=== PATIENT | male | born 1955 | race Caucasian/White ===

== ENCOUNTER 2024-05-28 09:35 | Outpatient (AMB) | payer OTHER, SELFPAY ==
--- NOTE | 2024-05-28 10:24 | ORTHONT_ITS ---
Vital signs 05/28/24 10:25 Height 1.7 m Height Method Stated Weight 91.172 kg Weight Measurement Method Standing Scale BMI 31.4 BP 137/86 H Blood Pressure Source Automatic Cuff Blood Pressure Location Left Upper Arm Position Sitting Respiration 18 Pulse 98 Pulse Source Monitor Temp 98.0 F Temp Source Temporal Artery Scan Pulse Oximetry (%) 96 Oxygen Delivery Method Room Air Med/Allergies Allergies & Medications Allergies No Known Allergies Allergy (Verified 05/28/24 10:25) Medication Reconciliation Unobtainable 05/28/24 [History Confirmed 05/28/24] Exam Exam Breathing is nonlabored. Patient has a normal mood and affect. Bilateral extremities were evaluated and demonstrates sensation intact to light touch. Palpable pedal pulses are present. No significant edema is present. Bilateral hips were examined. The patient has no pain with log roll of the hips. Internal rotation to 30 degrees and external rotation to 30 degrees is painless. Negative FADIR. Left knee was examined today. The left knee is in reasonable alignment. Range of motion from 0-120 degrees. Knee is stable to varus and valgus as well as AP tra nslation with <5mm. Patient has a negative McMurrays. There is no pain with patellofemoral compression and no crepitus noted. The knee is nontender to palpation. The right knee was also examined. The right knee is in varus alignment. Range of motion from 0-115 degrees. Knee is stable to varus and valgus as well as AP translation with <5mm. Patient has a negative McMurrays. There is no pain with patellofemoral compression and no crepitus noted. The knee is tender to palpation medially. Assessment and Plan Problem List (1) Arthritis of knee, right: Status: Acute Plan: Patient is a 68-year-old male with severe right knee arthritis is tried multiple injections in the past. He reports they still work. He is interested in new injections today. He is not interested in surgery at this time. I would like to get new x-rays as it has been over 2 years. We will see him back in 1 month. Advanced Care Planning Discussion Advance care planning discussed with:: patient Office Procedures GNS Level of Care Nursing/Assessment Patient Status: Initial/New Patient Nursing Assessment/Reassesment: Medication Reconciliation, Update PMH in EMR and Vital Signs Coordination of Care: Complex Care and Chronic Disease 1-5, Education Complex Pt/Fam, Consent,records obtained, informed consent, 1 Ins Authorization, Lab and Imaging orders, Results/Orders obtained and Staff clarify orders Special Needs: Language special needs New Patient Charge New Patient Point Assignment: 1124 New Patient Point Charge: BOMB SQUAD OFFICER Level 4 ([id number]) MA Intake Visit Data Collection New Patient or Established: New Patient (never been to [facility]) Reason for Visit:: RIGHT KNEE OSTEOARTHRITIS Seen by Clinical Staff ONLY (RN/MA): No Photostatic Copy Maker Required: Yes PCP or OBGYN visit in last 3 months: Yes Hx Now: No Do You Feel Safe at Home: Yes Authorities Contacted: N/A Questionairres Past Medical History Past Medical History Have you ever been diagnosed with any of the following: Cardiology Problems Hypercholesterolemia: Yes Hypertension: Yes Subjective Visit Visit for: new patient and knee (RIGHT) Immunization / Flu Flu Vaccine in the Last 12 Months: No Flu Vaccine Exclusion Criteria: No Exclusion Criteria History of Present Illness Chief complaint: right knee pain Mane is a pleasant 68-year-old male with right knee pain. The pain has been ongoing for several years. He is tried over 5 injections anti-inflammatories. He is not interested in surgery at this time. He would like to continue with conservative treatment. His last x-rays were over 2 years old Pain Pain level (0-10): 6 Pain duration: WITH MOVEMENT Pain location: anterior Pain quality: sharp, dull and aching Pain timing: increases with activity and stairs Associated signs & symptoms: weakness Ambulatory data Ambulatory device: none Treatments Number of previous injections: 5 Improvement with previous injections: No Number of Physical Therapy sessions: 12 Improvement with PT: No Improvement with NSAIDS: no Review of Systems Review of Systems: All systems negative unless otherwise noted in HPI.
[2024-05-28 10:25] VITALS: BP 137/86; PULSE 98; RESP 18; TEMP 36.7; O2SAT 96; BMI 31.4
== END 2024-05-28 10:35 | disposition home or self-care (01) ==
LOC: HODSRG 09:35
PROVIDERS: Supervising Provider Orthopaedic Surgery Adult Reconstructive Orthopaedic Surgery; Visit Provider Orthopaedic Surgery Adult Reconstructive Orthopaedic Surgery
DX: M17.11 Unilateral primary osteoarthritis, right knee (principal); I10 Essential (primary) hypertension; E78.00 Pure hypercholesterolemia, unspecified
CPT/HCPCS: 99204; G0463

== ENCOUNTER → 2024-05-28 | Outpatient (CLI) | payer OTHER, MEDICAID, SELFPAY ==
--- NOTE | 2024-05-28 | XR_ITS ---
Examination: Right knee 4 views TECHNIQUE: Standing AP oblique lateral axial right knee PA flexion 4 views Exam date and time: May 20, 2024 12:35 PM INDICATIONS: Patient fell 2020 with injury to the knee, worsening knee pain. FINDINGS: Significant osteopenia Severe narrowing medial joint space, [id number] Significant osteoarthritis patellofemoral lateral joint spaces No fracture IMPRESSION: Severe narrowing medial joint space, [id number]
== END | disposition home or self-care (01) ==
PROVIDERS: Referring Provider Orthopaedic Surgery Adult Reconstructive Orthopaedic Surgery; Visit Provider Orthopaedic Surgery Adult Reconstructive Orthopaedic Surgery
DX: M25.861 Other specified joint disorders, right knee (principal)
CPT/HCPCS: 73564

== ENCOUNTER 2024-06-13 08:55 | Outpatient (AMB) | payer OTHER, MEDICAID, SELFPAY ==
[2024-06-13 09:31] VITALS: BP 143/91; PULSE 100; RESP 19; TEMP 36.8; O2SAT 98; BMI 31.4
--- NOTE | 2024-06-13 09:31 | PD.ORTHCLVIS ---
Vital signs 06/13/24 09:31 Height 1.7 m Height Method Stated Weight 90.86 kg Weight Measurement Method Standing Scale BMI 31.4 BP 143/91 H Blood Pressure Source Automatic Cuff Blood Pressure Location Right Upper Arm Position Sitting Respiration 19 Pulse 100 Pulse Source Monitor Temp 98.3 F Temp Source Temporal Artery Scan Pulse Oximetry (%) 98 Oxygen Delivery Method Room Air Med/Allergies Allergies & Medications Allergies No Known Allergies Allergy (Verified 06/13/24 09:32) Medication Reconciliation amlodipine 5 mg-atorvastatin 20 mg tablet 1 tab PO QDAY 06/13/24 [History Confirmed 06/13/24] atorvastatin 20 mg tablet 20 mg PO QDAY 06/13/24 [History Confirmed 06/13/24] metformin 500 mg tablet 500 mg PO QDAY 06/13/24 [History Confirmed 06/13/24] Exam Exam Breathing is nonlabored. Patient has a normal mood and affect. Bilateral extremities were evaluated and demonstrates sensation intact to light touch. Palpable pedal pulses are present. No significant edema is present. Bilateral hips were examined. The patient has no pain with log roll of the hips. Internal rotation to 30 degrees and external rotation to 30 degrees is painless. Negative FADIR. Left knee was examined today. The left knee is in reasonable alignment. Range of motion from 0-120 degrees. Knee is stable to varus and valgus as well as AP translation with <5mm. Patient has a negative McMurrays. There is no pain with patellofemoral compression and no crepitus noted. The knee is nontender to palpation. The right knee was also examined. The right knee is in varus alignment. Range of motion from 0-115 degrees. Knee is stable to varus and valgus as well as AP translation with <5mm. Patient has a negative McMurrays. There is no pain with patellofemoral compression and no crepitus noted. The knee is tender to palpation medially. X-rays demonstrate complete joint space obliteration medially. He has significant varus deformity Assessment and Plan Problem List (1) Arthritis of knee, right: Status: Acute Plan: Patient is a 68-year-old male with severe right knee arthritis is tried multiple injections in the past. He reports they still work. He is interested in new injections today. Recommend knee cortisone injection as patient would like to proceed with conservative treatment at this time. The risks and benefits of the procedure were reviewed with the patient and patient gave verbal consent to continue with the procedure. Procedure: performed by Dr. Tracy Using sterile technique the Right knee was thoroughly prepped with alcohol, and approximately 1 cc of Kenalog 40 mg/mL and 4 cc of 1% lidocaine was injected without resistance into the medial tibial femoral joint space. The patient tolerated the procedure. Advanced Care Planning Discussion Advance care planning discussed with:: patient Office Procedures GNS Level of Care Nursing/Assessment Patient Status: Established Patient Nursing Assessment/Reassesment: Medication Reconciliation, Update PMH in EMR and Vital Signs Coordination of Care: Complex Care and Chronic Disease 1-5, Education Complex Pt/Fam, Consent,records obtained, informed consent, Results/Orders obtained and Staff clarify orders Special Needs: Language special needs Established Patient Charge Established Patient Point Assignment: 95 Surgical Proc/IM SQ injection Major Surgical Procedure: Yes (KNEE INJECTION ) Medication Given Medication Given Medication Given: Yes Documented Dose Given: 4 Route: Infiitration Medication Given Medication Given Medication Given: Yes Documented Dose Given: 1 Office Meds Xylocaine 10 mg/mL (1 %) injection solution Performing Provider: Ezio Tracy MD Performing Location: [facility] Administered by: Ezio Tracy MD on 06/13/24 09:47 Dose Route Admin Location Dispensed Lot Number Expiration Date [facility] Asp Net C Developer 20 mL Infiltration 20 mL [id number] [facility] triamcinolone acetonide 40 mg/mL suspension for injection Performing Provider: Ezio Tracy MD Performing Location: [facility] Administered by: Ezio Tracy MD on 06/13/24 09:47 Dose Route Admin Location Dispensed Lot Number Expiration Date [facility] Asp Net [employer] Developer 40 mg intra-articular RIGHT KNEE 1 mL [id number] 08/29/25 9815-4309-78 TEVA PARENTERAL MA Intake Visit Data Collection New Patient or Established: Established Patient (seen at [facility] within 3 years) Reason for Visit:: F/U XRAYS & KNEE INJECTIONS Seen by Clinical Staff ONLY (RN/MA): No Verbal consent obtained for Telemed visit?: No Ballroom Dancer Required: Yes PCP or OBGYN visit in last 3 months: Yes Hx Now: No Do You Feel Safe at Home: Yes Authorities Contacted: N/A Questionairres Past Medical History Past Medical History Have you ever been diagnosed with any of the following: Cardiology Problems Hypercholesterolemia: Yes Hypertension: Yes Subjective Visit Visit for: follow up visit and knee Immunization / Flu Flu Vaccine in the Last 12 Months: No Flu Vaccine Exclusion Criteria: No Exclusion Criteria History of Present Illness Chief complaint: right knee pain Mane is a pleasant 68-year-old male with right knee pain. The pain has been ongoing for several years. He is tried over 5 injections anti-inflammatories. He is not interested in surgery at this time. He would like to continue with conservative treatment. Pain Pain level (0-10): 6 Pain duration: WITH MOVEMENT Pain location: anterior Pain quality: sharp, dull and aching Pain timing: increases with activity and stairs Associated signs & symptoms: weakness Ambulatory data Ambulatory device: none Treatments Number of previous injections: 5 Improvement with previous injections: No Number of Physical Therapy sessions: 12 Improvement with PT: No Improvement with NSAIDS: no Review of Systems Review of Systems: All systems negative unless otherwise noted in HPI.
== END 2024-06-13 09:56 | disposition home or self-care (01) ==
PROVIDERS: Supervising Provider Orthopaedic Surgery Adult Reconstructive Orthopaedic Surgery; Visit Provider Orthopaedic Surgery Adult Reconstructive Orthopaedic Surgery
DX: M17.11 Unilateral primary osteoarthritis, right knee (principal); I10 Essential (primary) hypertension; E78.00 Pure hypercholesterolemia, unspecified
CPT/HCPCS: 20610; 99213; J3301; J3490; G0463

== ENCOUNTER 2024-09-13 08:31 | Outpatient (AMB) | payer OTHER, MEDICAID, SELFPAY ==
--- NOTE | 2024-09-13 09:22 | ORTHONT_ITS ---
Vital signs 09/13/24 09:23 Height 1.7 m Height Method Stated Weight 89.018 kg Weight Measurement Method Standing Scale BMI 30.8 BP 150/90 H Blood Pressure Source Automatic Cuff Blood Pressure Location Right Upper Arm Position Sitting Respiration 18 Pulse 75 Pulse Source Monitor Temp 96.8 F Temp Source Temporal Artery Scan Pulse Oximetry (%) 98 Oxygen Delivery Method Room Air Med/Allergies Allergies & Medications Allergies No Known Allergies Allergy (Verified 09/13/24 09:23) Medication Reconciliation amlodipine 5 mg-atorvastatin 20 mg tablet 1 tab PO QDAY 06/13/24 [History Confirmed 09/13/24] atorvastatin 20 mg tablet 20 mg PO QDAY 06/13/24 [History Confirmed 09/13/24] metformin 500 mg tablet 500 mg PO QDAY 06/13/24 [History Confirmed 09/13/24] Exam Exam Breathing is nonlabored. Patient has a normal mood and affect. Bilateral extremities were evaluated and demonstrates sensation intact to light touch. Palpable pedal pulses are present. No significant edema is present. Bilateral hips were examined. The patient has no pain with log roll of the hips. Internal rotation to 30 degrees and external rotation to 30 degrees is painless. Negative FADIR. Left knee was examined today. The left knee is in reasonable alignment. Range of motion from 0-120 degrees. Knee is stable to varus and valgus as well as AP translation with <5mm. Patient has a negative McMurrays. There is no pain with patellofemoral compression and no crepitus noted. The knee is nontender to palpation. The right knee was also examined. The right knee is in varus alignment. Range of motion from 0-115 degrees. Knee is stable to varus and valgus as well as AP translation with <5mm. Patient has a negative McMurrays. There is no pain with patellofemoral compression and no crepitus noted. The knee is tender to palpation medially. X-rays demonstrate complete joint space obliteration medially. He has significant varus deformity Assessment and Plan Problem List (1) Arthritis of knee, right: Status: Acute Plan: Patient is a 68-year-old male with severe right knee arthritis is tried multiple injections in the past. We would like to get surgery at this time. He Has tried multiple injections and anti-inflammatories The nature and purpose of the total knee replacement, alternative method(s) of treatment, the material risks involved, and the possibility of complications were fully explained to the patient. The patient does NOT have any of the following contraindications to TKA: - Active infection of the knee joint, OR - Active systemic bacteremia, OR - Active skin infection or open wound at surgical site, OR - Neuropathic arthritis, OR - Severe, rapidly progressive neurological disease, OR - Severe medical condition that makes risks of surgery outweigh the potential benefit The patient was told the most common risks and complications associated with a total knee replacement include, but are not limited to: blood clots in the leg, fatal pulmonary embolism, dislocation of the prosthesis, intraoperative and postoperative fractures of the femur or tibia, infection, failure of the prosthesis or grafting materials, complications from anesthesia, reactions to blood transfusions, postoperative leg length inequality, instability of the knee replacement, nerve damage or injury, vascular injury, delayed wound healing, infection, other injury or even . In addition, there are risks associated with anesthesia given during this operation. Also, the patient was told that after undergoing a total knee replacement there may still be persistent pain or disability. The patient was informed that the success of this operation in part depends upon the mechanical devices which are going to be implanted and that these devices can fail or malfunction, and may need to be repaired or replaced and there are no guarantees as to the longevity of this device or its parts and that it or its parts could fail prematurely. The patient was also notified that during the course of surgery, there may be a need to use bone graft from donors, and that any bone graft used will be carefully screened for communicable diseases, including AIDS, hepatitis, Samuel-Creutzfeldt, or other diseases, but despite the screening procedures, there is a small chance that they could contract one of these diseases. Finally, the patient was asked to follow completely and fully with all advice and recommended treatments, and that recovery and ultimate outcome are affected by their compliance with recommended treatment. We discussed the risks, benefits and treatment alternatives, and the patient is interested in proceeding with surgery. We will try to set this up as expeditiously as possible. Advanced Care Planning Discussion Advance care planning discussed with:: patient Office Procedures GNS Level of Care Nursing/Assessment Patient Status: Established Patient Nursing Assessment/Reassesment: Medication Reconciliation, Update PMH in EMR and Vital Signs Coordination of Care: Complex Care and Chronic Disease 1-5, Consent,records obtained, informed consent, 2-3 Insurance Autorizations needed, Lab and Imaging orders, Results/Orders obtained and Staff clarify orders Established Patient Charge Established Patient Point Assignment: 110 Established Patient Point Charge: EP Level 3 (80-115) MA Intake Visit Data Collection New Patient or Established: Established Patient (seen at [facility] within 3 years) Reason for Visit:: F/U KNEE PAIN Seen by Clinical Staff ONLY (RN/MA): No Verbal consent obtained for Telemed visit?: No Dimensional Inspector Required: Yes PCP or OBGYN visit in last 3 months: Yes Hx Now: No Do You Feel Safe at Home: Yes Authorities Contacted: N/A Questionairres Past Medical History Past Medical History Have you ever been diagnosed with any of the following: Cardiology Problems Hypercholesterolemia: Yes Hypertension: Yes Subjective Visit Visit for: follow up visit and knee Immunization / Flu Flu Vaccine in the Last 12 Months: Yes Flu Vaccine Exclusion Criteria: Already Received History of Present Illness Chief complaint: F/U KNEE PAIN Mane is a pleasant 68-year-old male with right knee pain. The pain has been ongoing for several years. He is tried over 5 injections anti-inflammatories. He is not interested in surgery at this time. He would like to continue with conservative treatment. Personal History Red flag PMH: BMI BMI Counceling provided: Yes Pain Pain level (0-10): 8 Pain duration: ALL DAY Pain location: inside (medial), outside (lateral), anterior and posterior Pain quality: sharp, dull and aching Pain timing: increases with activity Associated signs & symptoms: weakness and stiffness Ambulatory data Ambulatory device: none Treatments Number of previous injections: 5 Improvement with previous injections: No Number of Physical Therapy sessions: 12 Improvement with PT: No Improvement with NSAIDS: no Review of Systems Review of Systems: All systems negative unless otherwise noted in HPI.
[2024-09-13 09:23] VITALS: BP 150/90; PULSE 75; RESP 18; TEMP 36; O2SAT 98; BMI 30.8
== END 2024-09-13 09:25 | disposition home or self-care (01) ==
LOC: HODSRG 08:31
PROVIDERS: Supervising Provider Orthopaedic Surgery Adult Reconstructive Orthopaedic Surgery; Visit Provider Orthopaedic Surgery Adult Reconstructive Orthopaedic Surgery
DX: M17.11 Unilateral primary osteoarthritis, right knee (principal); I10 Essential (primary) hypertension; E78.00 Pure hypercholesterolemia, unspecified; M25.561 Pain in right knee
CPT/HCPCS: 99213; G0463